=== PATIENT | male | born 1990 | race Caucasian/White ===

== ENCOUNTER 2018-06-21 20:34 | Emergency (ER) | payer MEDICAID ==
[2018-06-21 22:23] VITALS: BP 137/80
== END 2018-06-21 22:25 | disposition home or self-care (01) ==
LOC: ED 20:34
DX: K12.0 Recurrent oral aphthae (principal); B37.0 Candidal stomatitis; H66.91 Otitis media, unspecified, right ear; H72.91 Unspecified perforation of tympanic membrane, right ear
CPT/HCPCS: J1885